=== PATIENT | male | born 1985 | race Two or more races ===

== ENCOUNTER 2017-05-27 19:33 | Emergency (ER) | payer SELFPAY ==
[2017-05-27] MEDS ORDERED: Proparacaine 0.5% Ophth Soln 15 ML Bottle EYERT STA (19:37)
--- NOTE | 2017-05-27 20:13 | EDM.PDOC ---
ED HPI GENERAL MEDICAL PROBLEM - General Chief Complaint: Eye Problems Stated Complaint: SOMETHING IN LT EYE Time Seen by Provider: 05/27/17 20:12 Source of Information: Reports: Patient History Limitations: Reports: No Limitations - History of Present Illness INITIAL COMMENTS - FREE TEXT/NARRATIVE: HISTORY AND PHYSICAL: []32-year-old male presenting with left eye pain History of Present Illness: []He was changing a light bulb and something came off of the bulb or fixture and got into his eye Review of Systems: As per history of present illness and below otherwise all systems reviewed and negative. Past medical history: As per history of present illness and as reviewed below otherwise noncontributory. Surgical history: As per history of present illness and as reviewed below otherwise noncontributory. Social history: No reported history of drug or alcohol abuse. Family history: As per history of present illness and as reviewed below otherwise noncontributory. Physical exam: Alert and oriented young man who answers questions appropriately he has both eyes erythematous only complaining of pain to the left HEENT: Atraumatic, normocehpalic, pupils reactive, negative for conjunctival pallor or scleral icterus, mucous membranes moist, throat clear, neck supple, nontender, trachea midline. Sclerae erythematous Lungs: Clear to auscultation, breath sounds equal bilaterally, chest non tender. Heart: S1S2, regular, negative for clicks, rubs, or JVD. Abdomen: Soft, nondistended, nontender. Negative for masses or hepatossplenmegaly. Negative for costovertebral tenderness. Pelvis: Stable nontender. Genitourinary: Deferred. Rectal: Deferred Extremities: Atraumatic, negative for cords or calf pain. Neurovascular unremarkable. Neuro: Awake, alert, oriented. Cranial nerves II through XII unremarkable. Cerebellum unremarkable. Motor and sensory unremarkable throughout. Exam nonfocal. Fluorescein strip was utilized after proparacaine drops applied and large abrasion was noted very small foreign body was removed with a moistened Q-tip at the 3 o'clock position. Notable during the irrigation of his eye patient had a vasovagal symptoms and syncopal episode which was unremarkable. Pain is awake and alert speaking well moving extremities without any difficulty or has returned to normal. Ophthalmology has been notified of this patient I spoken to Dr. Sosa export freight specialist that is sr. consultant and he will see this patient at 10 AM tomorrow at [facility] door #2 Diagnostics: [Wood's lamp] Therapeutics: []Proparacaine drops Impression: [Corneal abrasion] Plan: []Erythromycin ointment 3 times a day Tylenol for pain See Dr. Sosa for re-evaluation tomorrow at 10am [facility] [address]. Definitive disposition and diagnosis as appropriate pending reevaluation and review of above. Onset: Today, Sudden Duration: Hour(s):, Getting Worse - Related Data Allergies Allergy/AdvReac Type Severity Reaction Status Date / Time No Known Allergies Allergy Verified 05/27/17 19:54 Home Meds: Home Meds . [No Known Home Meds] 05/27/17 [History] Past Medical History - Past Health History Medical/Surgical History: Denies Medical/Surgical History Social & Family History - Tobacco Use Smoking Status *Q: Never Smoker Second Hand Smoke Exposure: No - Caffeine Use Caffeine Use: Reports: Coffee - Recreational Drug Use Recreational Drug Use: No ED ROS GENERAL - Review of Systems Review Of Systems: ROS reveals no pertinent complaints other than HPI. ED EXAM GENERAL W FULL EYE - Physical Exam Exam: See Below Course - Vital Signs Last Recorded V/S: Last Vital Signs Temp 36.3 C 05/27/17 19:51 Pulse 74 05/27/17 19:51 Resp 18 05/27/17 19:51 BP 115/84 05/27/17 19:51 Pulse Ox 96 05/27/17 19:51 - Orders/Labs/Meds Orders: Active Orders 24 hr Category Date Time Status Erythromycin Base [Erythromycin 0.5% Ophth Oint] Med 05/27/17 21:13 Once 1 gm EYEBOTH ONETIME ONE Meds: Medications Discontinued Medications Generic Name Dose Route Start Last Admin Trade Name Freq PRN Reason Stop Dose Admin Proparacaine HCl 2 ml 05/27/17 19:37 05/27/17 20:25 Proparacaine 0.5% Ophth Soln EYERT 05/27/17 19:38 2 ml NOW STA Administration Departure - Departure Time of Disposition: 21:12 Disposition: Home, Self-Care 01 Condition: Good Clinical Impression: Corneal abrasion Qualifiers: Encounter type: initial encounter Laterality: left Qualified Code(s): S05.02XA - Injury of conjunctiva and corneal abrasion without foreign body, left eye, initial encounter - Discharge Information Instructions: Eye Foreign Body, [id number] Referrals: PCP,None [Primary Care Provider] - Forms: ED Department Discharge Additional Instructions: The following information is given to patients seen in the emergency department who are being discharged to home. This information is to outline your options for follow-up care. We provide all patients seen in our emergency department with a follow-up referral. The need for follow-up, as well as the timing and circumstances, are variable depending upon the specifics of your emergency department visit. If you don't have a primary care physician on staff, we will provide you with a referral. We always advise you to contact your personal physician following an emergency department visit to inform them of the circumstance of the visit and for follow-up with them and/or the need for any referrals to a consulting specialist. The emergency department will also refer you to a specialist when appropriate. This referral assures that you have the opportunity for followup care with a specialist. All of these measure are taken in an effort to provide you with optimal care, which includes your followup. Under all circumstances we always encourage you to contact your private physician who remains a resource for coordinating your care. When calling for followup care, please make the office aware that this follow-up is from your recent emergency room visit. If for any reason you are refused follow-up, please contact the [facility] emergency department at and asked to speak to the emergency department charge nurse. Follow-up tomorrow [address] [facility] door #2. Tylenol for discomfort Erythromycin ophthalmic ointment 3 times a day - My Orders Last 24 Hours: My Active Orders 05/27/17 21:13 Erythromycin Base [Erythromycin 0.5% Ophth Oint] 1 gm EYEBOTH ONETIME ONE - Assessment/Plan Last 24 Hours: My Active Orders 05/27/17 21:13 Erythromycin Base [Erythromycin 0.5% Ophth Oint] 1 gm EYEBOTH ONETIME ONE
[2017-05-27] MEDS ORDERED: Erythromycin Base 0.5% Ophth Oint 1 GM Tube EYEBOTH ONE (21:13)
== END 2017-05-27 21:24 | disposition home or self-care (01) ==
LOC: MW.ED 19:33
DX: S05.02XA Injury of conjunctiva and corneal abrasion without foreign body, left eye, initial encounter (principal); X58.XXXA Exposure to other specified factors, initial encounter
CPT/HCPCS: 65220; 99283; A9270

== ENCOUNTER 2019-01-28 01:17 | Emergency (ER) | payer OTHER ==
[2019-01-28] MEDS ORDERED: Tetracaine HCl/PF 0.5% 4 ML Bottle EYERT ONE (01:19)
[2019-01-28] MEDS ORDERED: Erythromycin Base 0.5% Ophth Oint 1 GM Tube EYERT ONE (01:51)
--- NOTE | 2019-01-28 01:51 | EDM.PDOC ---
ED HPI GENERAL MEDICAL PROBLEM - General Chief Complaint: Eye Problems Stated Complaint: SOMETHING IN PT'S RT EYE Time Seen by Provider: 01/28/19 01:39 - History of Present Illness INITIAL COMMENTS - FREE TEXT/NARRATIVE: HISTORY AND PHYSICAL: History of present illness: The patient is a 33-year-old male who presents with complaints of irritation and redness to his right eye that started a few hours ago. He says he was at work and he felt some irritation and he looked at his eye and he did not see anything but he did irrigate his eye at home and it did not improve so he came here for evaluation. He doesn't feel like his vision is blurred and he had no direct trauma to his face or eyes. 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 He does not wear glasses or contact lenses and he has no eyelid or periorbital pain no headache and no other systemic complaints Review of systems: As per history of present illness and below otherwise all systems reviewed and negative. Past medical history: As per history of present illness and as reviewed below otherwise noncontributory. Surgical history: As per history of present illness and as reviewed below otherwise noncontributory. Social history: No reported history of drug or alcohol abuse. Family history: As per history of present illness and as reviewed below otherwise noncontributory. Physical exam: General: Well-developed well-nourished man who is nontoxic and vital signs are noted by me HEENT: Atraumatic, normocephalic, pupils reactive, right sclera is mildly injected but the conjunctiva is within normal limits and the eyelid margins and the eyelid tissue is not swollen, EOMs are intact, no gross foreign body was appreciated both on the corneal surface as well as underneath the upper eyelid, no foreign object was removed on eyelid sweep, no periorbital crepitus or erythema/soft tissue swelling negative for conjunctival pallor or scleral icterus, mucous membranes moist, throat clear, neck supple, nontender, trachea midline. Lungs: Clear to auscultation, breath sounds equal bilaterally, chest nontender. Heart: S1S2, regular rate and rhythm no overt murmurs Abdomen: Soft, nondistended, nontender. NABS Pelvis: Deferred Genitourinary: Deferred. Rectal: Deferred. Extremities: Atraumatic, negative for cords or calf pain. Neurovascular unremarkable. Neuro: Awake, alert, oriented. Cranial nerves II through XII unremarkable. Cerebellum unremarkable. Motor and sensory unremarkable throughout. Exam nonfocal. Diagnostics: Visual acuity per nursing= right 20/30 left 20/30 Fluoroscein stain was performed after tetracaine instillation in the right eye. There was no discrete area of fluoroscein uptake and there was no foreign body appreciated and on Q-tip eyelid sweep no foreign body was seen. Fluoroscein was irrigated out by nursing and patient tolerated all of this procedure well Therapeutics: Erythromycin ointment Impression: Right eye irritation/foreign body sensation Definitive disposition and diagnosis as appropriate pending reevaluation and review of above. - Related Data Allergies Allergy/AdvReac Type Severity Reaction Status Date / Time No Known Allergies Allergy Verified 05/27/17 19:54 Home Meds: Home Meds . [No Known Home Meds] 05/27/17 [History] Past Medical History - Past Health History Medical/Surgical History: Denies Medical/Surgical History Social & Family History - Family History Family Medical History: Noncontributory - Tobacco Use Smoking Status *Q: Never Smoker Second Hand Smoke Exposure: No - Caffeine Use Caffeine Use: Reports: None - Recreational Drug Use Recreational Drug Use: No ED ROS GENERAL - Review of Systems Review Of Systems: ROS reveals no pertinent complaints other than HPI. ED EXAM GENERAL W FULL EYE - Physical Exam Exam: See Below Course - Vital Signs Last Recorded V/S: Last Vital Signs Temp 35.8 C 01/28/19 01:18 Pulse 74 01/28/19 01:18 Resp 16 01/28/19 01:18 BP 140/70 01/28/19 01:18 Pulse Ox 98 01/28/19 01:18 - Orders/Labs/Meds Orders: Active Orders 24 hr Category Date Time Status Communication Order [RC] STAT Care 01/28/19 01:18 Active Meds: Medications Discontinued Medications Generic Name Dose Route Start Last Admin Trade Name Freq PRN Reason Stop Dose Admin Tetracaine HCl 0.5 ml 01/28/19 01:19 01/28/19 01:37 Tetracaine 0.5% Steri-Unit Kayla EYERT 01/28/19 01:20 0.5 ml ASDIRECTED ONE Administration Departure - Departure Time of Disposition: 01:49 Disposition: Home, Self-Care 01 Condition: Good Clinical Impression: Irritation of right eye - Discharge Information Referrals: PCP,None [Primary Care Provider] - Additional Instructions: The following information is given to patients seen in the emergency department who are being discharged to home. This information is to outline your options for follow-up care. We provide all patients seen in our emergency department with a follow-up referral. The need for follow-up, as well as the timing and circumstances, are variable depending upon the specifics of your emergency department visit. If you don't have a primary care physician on staff, we will provide you with a referral. We always advise you to contact your personal physician following an emergency department visit to inform them of the circumstance of the visit and for follow-up with them and/or the need for any referrals to a consulting specialist. The emergency department will also refer you to a specialist when appropriate. This referral assures that you have the opportunity for followup care with a specialist. All of these measure are taken in an effort to provide you with optimal care, which includes your followup. Under all circumstances we always encourage you to contact your private physician who remains a resource for coordinating your care. When calling for followup care, please make the office aware that this follow-up is from your recent emergency room visit. If for any reason you are refused follow-up, please contact the [facility] emergency department at and ask to speak to the emergency department charge nurse. [facility]--ophthalmology [address] [place] [address] Be gentle with your eye and do not rub it and use ointment as directed for the next 3 days. Please connect with our ophthalmology clinic using resources given to above for reevaluation and further care in the next 24-48 hours if the irritation persists. Return to ER as needed and as discussed - My Orders Last 24 Hours: My Active Orders 01/28/19 01:18 Communication Order [RC] STAT - Assessment/Plan Last 24 Hours: My Active Orders 01/28/19 01:18 Communication Order [RC] STAT
== END 2019-01-28 02:00 | disposition home or self-care (01) ==
LOC: MW.ED 01:17
DX: H57.89 Other specified disorders of eye and adnexa (principal)
CPT/HCPCS: 99283; A9270

== ENCOUNTER 2024-11-27 06:34 | Inpatient (IN) | payer BC ==
[2024-11-27] MEDS ORDERED: Sodium Chloride 0.9% 10 ML Syringe FLUSH PRN ×2 (07:00→10:25)
[2024-11-27] MEDS ORDERED: Sodium Chloride 0.9% 2.5 ML Syringe FLUSH PRN ×2 (07:00→10:25)
[2024-11-27 07:08] LABS: BASOPHILS ABSOLUTE AUTO 0.05 K/uL (0.00-0.20); BASOPHILS PERCENT AUTO 0.7 % (0.0-1.0); EOSINOPHILS ABSOLUTE AUTO 0.12 K/uL (0.00-0.45); EOSINOPHILS PERCENT AUTO 1.6 % (0.0-6.0); IMMATURE GRAN ABSOLUTE AUTO 0.02 K/uL (0.00-0.05); IMMATURE GRAN PERCENT AUTO 0.3 % (0.0-0.4); LYMPHOCYTES ABSOLUTE AUTO 3.07 K/uL (1.00-4.80); LYMPHOCYTES PERCENT AUTO 41.4 % (24.0-44.0); MEAN PLATELET VOLUME 10.8 fL (9.4-12.4); MONOCYTES ABSOLUTE AUTO 0.55 K/uL (0.00-0.80); MONOCYTES PERCENT AUTO 7.4 % (0.0-8.0); NEUTROPHILS ABSOLUTE AUTO 3.60 K/uL (1.80-7.70); NEUTROPHILS PERCENT AUTO 48.6 % (41.0-71.0); NRBC ABSOLUTE 0.00 K/uL (0.00-0.02); NRBC PERCENT 0.0 /100WBC (0.0-0.2); PLATELET COUNT,PLT 153 K/uL (150-400); RED BLOOD CELL COUNT 5.01 M/uL (4.52-5.90); WHITE BLOOD CELL COUNT,WBC 7.41 K/uL (3.9-11.3)
[2024-11-27 07:23] LABS: INR 1.13 (0.86-1.11); PTT,PARTIAL THROMBOPLSTIN TIME 28.7 SEC (23.9-30.7)
[2024-11-27] MEDS: Iopamidol 755 MG/ML 500 ML Multipack Bottle IVPUSH STA (07:31)
[2024-11-27 07:36] LABS: A/G RATIO 1.4 (0.9-1.6); ALANINE AMINOTRANSFERASE,ALT 38 IU/L (14-63); ASPARTATE AMNIOTRANSFERASE,AST 15 IU/L (15-37); BILIRUBIN TOTAL 0.6 mg/dL (0.2-1.0); BLOOD UREA NITROGEN,BUN 16 mg/dL (7.0-18.0); CARBON DIOXIDE,CO2 29.1 mmol/L (21.0-32.0); CHLORIDE,CL 107 mmol/L (98-107); CHOLESTEROL HDL 35 mg/dL (40-60); CHOLESTEROL LDL CALCULATED 88 mg/dL (60-180); CHOLESTEROL TOTAL 153 mg/dL (50-200); CREATININE 1.1 mg/dL (0.8-1.3); EST CRCL DRUG DOSING (CG) 94.13 mL/min; ETHANOL BLOOD MEDICAL <3 mg/dL; GLUCOSE RANDOM 128 mg/dL (74-106); POTASSIUM,K 4.0 mmol/L (3.5-5.1); PROTEIN TOTAL,TP 6.8 g/dL (6.4-8.2); SODIUM,NA 144 mmol/L (136-148); VLDL CHOLESTEROL 30 mg/dL (5-55)
[2024-11-27 07:37] LABS: ESTIMATED GFR 86 mL/min (>60)
[2024-11-27] MEDS: Ondansetron 4 MG/2 ML SDV IVPUSH ONE (07:41)
[2024-11-27] MEDS ORDERED: Ondansetron 4 MG/2 ML SDV IVPUSH PRN (10:25)
[2024-11-28 05:33] LABS: BASOPHILS ABSOLUTE AUTO 0.03 K/uL (0.00-0.20); BASOPHILS PERCENT AUTO 0.5 % (0.0-1.0); EOSINOPHILS ABSOLUTE AUTO 0.10 K/uL (0.00-0.45); EOSINOPHILS PERCENT AUTO 1.6 % (0.0-6.0); IMMATURE GRAN ABSOLUTE AUTO 0.04 K/uL (0.00-0.05); IMMATURE GRAN PERCENT AUTO 0.6 % (0.0-0.4); LYMPHOCYTES ABSOLUTE AUTO 2.26 K/uL (1.00-4.80); LYMPHOCYTES PERCENT AUTO 36.5 % (24.0-44.0); MEAN PLATELET VOLUME 10.9 fL (9.4-12.4); MONOCYTES ABSOLUTE AUTO 0.44 K/uL (0.00-0.80); MONOCYTES PERCENT AUTO 7.1 % (0.0-8.0); NEUTROPHILS ABSOLUTE AUTO 3.32 K/uL (1.80-7.70); NEUTROPHILS PERCENT AUTO 53.7 % (41.0-71.0); NRBC ABSOLUTE 0.00 K/uL (0.00-0.02); NRBC PERCENT 0.0 /100WBC (0.0-0.2); PLATELET COUNT,PLT 159 K/uL (150-400); RED BLOOD CELL COUNT 4.99 M/uL (4.52-5.90); WHITE BLOOD CELL COUNT,WBC 6.19 K/uL (3.9-11.3)
[2024-11-28 05:53] LABS: BLOOD UREA NITROGEN,BUN 16.0 mg/dL (7.0-18.0); CARBON DIOXIDE,CO2 27.1 mmol/L (21.0-32.0); CHLORIDE,CL 108.0 mmol/L (98-107); CREATININE 1.2 mg/dL (0.8-1.3); EST CRCL DRUG DOSING (CG) 86.28 mL/min; GLUCOSE RANDOM 100.0 mg/dL (74-106); POTASSIUM,K 4.2 mmol/L (3.5-5.1); SODIUM,NA 143.0 mmol/L (136-148)
[2024-11-28 05:55] LABS: ESTIMATED GFR 78.0 mL/min (>60)
[2024-11-29 20:06] LABS: AT III ANTIGEN 77 % (82-136); AT III ENZYMATIC 95 % (76-128)
[2024-11-30 05:07] LABS: B2GLYCPRT1 IGG AB <10 SGU (<=20); B2GLYCPRT1 IGM AB <10 SMU (<=20)
[2024-11-30 11:07] LABS: HOMOCYSTINE 10 umol/L (0-15)
[2024-11-30 16:07] LABS: PROTEIN S TOTAL AG 99 % (84-134)
[2024-11-30 20:03] LABS: PROT C FUNCTIONAL 95 % (83-168); PROT S FUNCTIONAL 73 % (66-143); PROTEIN C TOTAL AG 76 % (63-153)
[2024-12-01 14:07] LABS: ANTI-XA QUALITATIVE INTERP Not Performed (Not Present); ANTICOAG MEDICATION NEUTRALIZ Not Performed (Not Performed); DRVVT 1:1 MIX RATIO Not Performed (<=1.20); DRVVT CONFIRMATION RATIO Not Performed (<=1.20); DRVVT SCREEN RATIO 0.97 (<=1.20); HEXAGONAL PHOSPHOLIPID CONFIRM Not Performed s (<=7.9); NEUTRALIZED DRVVT SCREEN RATIO Not Performed (<=1.20); NEUTRALIZED PTT-LA RATIO Not Performed (<=1.20); PROTHROMBIN TIME (PT) 14.8 s (12.0-15.5); PTT-LA RATIO 1.02 (<=1.20); THROMBIN TIME (TT) Not Performed s (<=19.5)
[2024-12-02 15:07] LABS: MTHFR PCR SPECIMEN Whole Blood; MTHFR VARIANT:C.1286A>C Heterozygous; MTHFR VARIANT:C.665C>T Negative
[2024-12-02 17:03] LABS: PROTHROMBIN G20210A PATHOG VAR Negative
[2024-12-03 17:03] LABS: FACTOR V LEIDEN R506Q MUTATION Negative; FACV SPECIMEN Whole Blood
== END 2024-11-28 10:45 | DRG 45 ==
LOC: MW.ED 06:34 → OBSVTOIN 08:59 → MW.MS 08:59
PROVIDERS: ADMIT Internal Medicine; ATTEND Internal Medicine
DX: I63.81 Other cerebral infarction due to occlusion or stenosis of small artery (principal); Q21.10 Atrial septal defect, unspecified; R20.0 Anesthesia of skin; G81.94 Hemiplegia, unspecified affecting left nondominant side; I69.992 Facial weakness following unspecified cerebrovascular disease; Z98.890 Other specified postprocedural states
CPT/HCPCS: 36415; 70450; 70450-26; 70496; 70496-26; 70498; 70498-26; 70551; 70551-26; 80048; 80053; 80061; 80307; 81240; 81241; 81291; 82947; 83036; 83090; 83735; 85025; 85300; 85301; 85302; 85303; 85305; 85306; 85520; 85525; 85598; 85610; 85613; 85670; 85730; 86146; 86147; 93005; 93010; 93306; 96361; 96374; 97161-GP; 97165-GO; 97168-GO; 99222; 99239; 99285; 99285-25; A9270-GY; J1650; J2405; J7030; Q9967